=== PATIENT | female | born 1955 | race Two or more races ===

== ENCOUNTER 2025-04-12 18:49 | Emergency (ER) | payer MEDICARE ==
[2025-04-12 20:32] VITALS: BP 130/86; PULSE 76
== END 2025-04-12 20:15 | disposition home or self-care (01) ==
LOC: FB.ED 18:49
DX: S61.012A Laceration without foreign body of left thumb without damage to nail, initial encounter (principal); I11.0 Hypertensive heart disease with heart failure; I50.9 Heart failure, unspecified; E11.9 Type 2 diabetes mellitus without complications; Z79.82 Long term (current) use of aspirin; Z79.899 Other long term (current) drug therapy; W26.0XXA Contact with knife, initial encounter
CPT/HCPCS: 12001; 99282